=== PATIENT | male | born 1945 | race Caucasian/White ===

== ENCOUNTER 2017-08-11 15:59 | Inpatient (IN) | payer MEDICARE, OTHER ==
[~2017-08-11] VITALS: Ht 182.9 cm; Wt 91.3 kg
[~2017-08-11 15:59] MED LIST: DEPA500T3 PO; HALO100P IM; HALO1TAB25 PO; SYNT50TA PO; TAMS0.4C67 PO
[2017-08-11 16:06] VITALS: BP 115/77; PULSE 88; RESP 18; TEMP 97.4; O2SAT 97
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
[2017-08-11 17:01] LABS: AUTOMATED NEUTROPHIL # 7.3 TH/MM3 (1.8-7.7); BASOPHIL % 0.4 % (0.0-2.0); EOSINOPHIL # 0.2 TH/MM3 (0-0.4); EOSINOPHIL % 1.6 % (0.0-4.0); HEMOGLOBIN 10.7 GM/DL (13.0-17.0); LYMPH % 15.2 % (9.0-44.0); LYMPHOCYTE # 1.5 TH/MM3 (1.0-4.8); MEAN CORPUSCULAR HEMOGLOBIN 23.5 PG (27.0-34.0); MEAN CORPUSCULAR HGB CONC 31.4 % (32.0-36.0); MEAN PLATELET VOLUME 9.5 FL (7.0-11.0); MONO % 8.2 % (0.0-8.0); MONOCYTE # 0.8 TH/MM3 (0-0.9); NEUT % 74.6 % (16.0-70.0); PLATELET COUNT 378 TH/MM3 (150-450); RED BLOOD COUNT 4.53 MIL/MM3 (4.50-5.90); RED CELL DISTRIBUTION WIDTH 22.7 % (11.6-17.2); WHITE BLOOD COUNT 9.8 TH/MM3 (4.0-11.0)
[2017-08-11 17:20] LABS: ALBUMIN 3.4 GM/DL (3.4-5.0); AST (GOT) 23 U/L (15-37); BICARBONATE 25.1 MEQ/L (21.0-32.0); BLOOD UREA NITROGEN 10 MG/DL (7-18); CALCIUM 8.6 MG/DL (8.5-10.1); CHLORIDE 107 MEQ/L (98-107); GLOMERULAR FILTRATION RATE 83 ML/MIN (>89); GLUCOSE,RANDOM 103 MG/DL (74-106); SODIUM (NA) 143 MEQ/L (136-145)
[2017-08-11 17:21] LABS: ALT (GPT) 30 U/L (12-78)
[2017-08-11 17:31] LABS: ALKALINE PHOSPHATASE 85 U/L (45-117); TOTAL BILIRUBIN ADULT 0.3 MG/DL (0.2-1.0); TOTAL PROTEIN 7.3 GM/DL (6.4-8.2)
[2017-08-11 19:57] VITALS: BP 123/85; PULSE 87; RESP 20; O2SAT 97
[2017-08-11] MEDS ORDERED: LORazepam 2 MG/ML VIAL IM ONE (20:00)
[2017-08-11] MEDS ORDERED: HALOPERIDOL LACTATE 5 MG/ML AMP IM ONE (20:00)
[2017-08-12 01:56] VITALS: BP 101/55; PULSE 72; RESP 18; O2SAT 98
[2017-08-12 02:08] LABS: BILIRUBIN, URINE NEG (NEG); BLOOD, URINE NEG (NEG); CALCIUM OXALATE CRYSTALS,URINE OCC /hpf; GLUCOSE,URINE NEG (NEG); HYALINE CAST, URINE 2 /lpf (RARE); KETONE, URINE 10 mg/dL (NEG); MUCUS URINE MANY /lpf (OCC); NITRITE,URINE NEG (NEG); SQUAMOUS EPITHELIAL CELL URINE <1 /hpf (0-5); URINE COLOR YELLOW (YELLW/STRAW); URINE LEUKOCYTE ESTERASE TRACE (NEG)
[2017-08-12] MEDS ORDERED: TAMS5CAP PO (04:28)
[2017-08-12] MEDS ORDERED: PROS5TAB PO (04:28)
[2017-08-12] MEDS ORDERED: ZINC220T PO (04:28)
[2017-08-12] MEDS ORDERED: OMEP20TA93 PO (04:28)
[2017-08-12] MEDS ORDERED: DEPA500T3 PO (04:28)
[2017-08-12] MEDS ORDERED: FOLI400T PO (04:28)
[2017-08-12] MEDS ORDERED: METO1TAB42 PO (04:28)
[2017-08-12] MEDS ORDERED: TYLE325T PO (04:28)
[2017-08-12] MEDS ORDERED: CERTTAB2 (04:28)
[2017-08-12] MEDS ORDERED: LEVO50TA4 PO (04:28)
[2017-08-12] MEDS ORDERED: VITA250T3 PO (04:28)
[2017-08-12] MEDS ORDERED: VITA100022 PO (04:28)
[2017-08-12] MEDS ORDERED: KEPP10002 PO (04:28)
[2017-08-12] MEDS ORDERED: SERO25TA PO (04:28)
[2017-08-12] MEDS ORDERED: NAME5TAB2 PO (04:28)
[2017-08-12] MEDS ORDERED: LORazepam 2 MG/ML VIAL IM ONE ×2 (05:00→21:45)
[2017-08-12 11:18] VITALS: BP 120/70; PULSE 65; RESP 18; O2SAT 97
[2017-08-12] MEDS ORDERED: ALUMINUM/MAGNESIUM/SIMETH 30 ML CUP PO PRN (15:45)
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
[2017-08-12 16:44] VITALS: BP 121/85; PULSE 78; RESP 18; TEMP 97.9; O2SAT 97
--- NOTE | 2017-08-12 19:42 | RADRPT ---
EXAM DATE/TIME: 08/12/2017 19:21 [facility] COMPARISON: No previous studies available for comparison. INDICATIONS : Evaluate chest for trauma, fell MEDICAL HISTORY : Cardiovascular disease. SURGICAL HISTORY : Pacemaker. ENCOUNTER: Initial ACUITY: 1 day PAIN SCORE: 0/10 LOCATION: Bilateral chest FINDINGS: No infiltrate, effusion or pneumothorax demonstrated. There is right-sided volume loss but this is ch ronic and unchanged. A right-sided cardiac pacer with 2 leads is again noted. Heart size stable, within normal limits. Visualized osseous structures are grossly intact. CONCLUSION: No acute abnormality demonstrated. Chet Toledo MD on August 12, 2017 at 19:39 Board Certified Radiologist. This report was verified electronically.
[2017-08-12] MEDS ORDERED: LORazepam 2 MG/ML VIAL ONE (21:38)
[2017-08-12] MEDS ORDERED: HALOPERIDOL LACTATE 5 MG/ML AMP ONE (21:38)
[2017-08-12] MEDS ORDERED: HALOPERIDOL LACTATE 5 MG/ML AMP IM ONE (21:45)
[2017-08-13] MEDS ORDERED: HALOPERIDOL LACTATE 5 MG/ML AMP IM ONE (05:15)
[2017-08-13] MEDS ORDERED: LORazepam 2 MG/ML VIAL IM ONE (05:15)
[2017-08-13 06:00] VITALS: BP 131/74; PULSE 104; RESP 19; TEMP 98.2; O2SAT 97
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
[2017-08-13] MEDS ORDERED: diphenhydrAMINE HCL 25 MG CAP PO PRN (08:30)
[2017-08-13] MEDS: ZINC SULFATE 220 MG CAP PO SCH (09:00)
[2017-08-13] MEDS: FINASTERIDE 5 MG TAB PO SCH (09:00)
[2017-08-13] MEDS: REMOVE OLD PATCH T-DERMAL SCH (09:00)
[2017-08-13] MEDS ORDERED: NICOTINE 21 MG/24 HR PATCH T-DERMAL SCH (09:00)
[2017-08-13] MEDS ORDERED: NICOTINE 21 MG/24 HR PATCH T-DERMAL PRN (09:00)
[2017-08-13] MEDS: DIVALPROEX SODIUM E.R. 500 MG TAB PO SCH ×3 (09:01→18:00)
[2017-08-13] MEDS: FOLIC ACID 1 MG TAB PO SCH (09:01)
[2017-08-13] MEDS: METOPROLOL SUCCINATE 25 MG EXTENDED RELEASE TAB PO SCH (09:01)
[2017-08-13] MEDS: ASCORBIC ACID 500 MG TAB PO SCH ×2 (09:01→21:25)
[2017-08-13] MEDS: TAMSULOSIN HCL 0.4 MG CAP PO SCH ×2 (09:01→21:25)
[2017-08-13] MEDS: CYANOCOBALAMIN 1,000 MCG TAB PO SCH (09:01)
[2017-08-13] MEDS: PANTOPRAZOLE SOD 20 MG DELAYED RELEASE TAB PO SCH (09:01)
[2017-08-13] MEDS: levETIRAcetam 500 MG TAB PO SCH ×2 (09:01→21:25)
[2017-08-13] MEDS: HALOPERIDOL 5 MG TAB PO SCH ×2 (09:01→21:24)
[2017-08-13 09:10] LABS: BICARBONATE 27.8 MEQ/L (21.0-32.0); BLOOD UREA NITROGEN 6 MG/DL (7-18); CALCIUM 8.6 MG/DL (8.5-10.1); CHLORIDE 107 MEQ/L (98-107); CREATININE 0.79 MG/DL (0.60-1.30); GLOMERULAR FILTRATION RATE 96 ML/MIN (>89); GLUCOSE,RANDOM 94 MG/DL (74-106); SODIUM (NA) 143 MEQ/L (136-145)
[2017-08-13 09:11] LABS: CHOLESTEROL 118 MG/DL (120-200); TRIGLYCERIDES 122 MG/DL (42-150)
[2017-08-13 09:14] LABS: CHOLESTEROL/ HDL RATIO 2.84 RATIO; HDL CHOLESTEROL 41.5 MG/DL (40.0-60.0); LDL CHOLESTEROL 52 MG/DL (0-99)
[2017-08-13] MEDS ORDERED: POTASSIUM CHLORIDE 20 MEQ CONTROLLED RELEASE TAB PO ONE (10:45)
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
[2017-08-13 16:17] LABS: HEMOGLOBIN A1C 5.2 % (4.3-6.0)
[2017-08-13] MEDS: ACETAMINOPHEN 325 MG TAB PO PRN (17:22)
[2017-08-13 17:58] VITALS: BP 128/70; PULSE 64; RESP 20; TEMP 97.3; O2SAT 99
[2017-08-13] MEDS: MELATONIN 5 MG TAB PO PRN (21:24)
[2017-08-14] MEDS: LEVOTHYROXINE SODIUM 50 MCG TAB PO SCH (05:28)
[2017-08-14 05:44] VITALS: BP 129/73; PULSE 79; RESP 16; TEMP 98; O2SAT 95
[2017-08-14] MEDS: CYANOCOBALAMIN 1,000 MCG TAB PO SCH (08:51)
[2017-08-14] MEDS: TAMSULOSIN HCL 0.4 MG CAP PO SCH ×2 (08:52→21:00)
[2017-08-14] MEDS: ASCORBIC ACID 500 MG TAB PO SCH ×2 (08:53→22:50)
[2017-08-14] MEDS: ZINC SULFATE 220 MG CAP PO SCH (08:53)
[2017-08-14] MEDS: FOLIC ACID 1 MG TAB PO SCH (08:53)
[2017-08-14] MEDS: HALOPERIDOL 5 MG TAB PO SCH (08:54)
[2017-08-14] MEDS: METOPROLOL SUCCINATE 25 MG EXTENDED RELEASE TAB PO SCH (08:54)
[2017-08-14] MEDS: PANTOPRAZOLE SOD 20 MG DELAYED RELEASE TAB PO SCH (08:55)
[2017-08-14] MEDS: DIVALPROEX SODIUM E.R. 500 MG TAB PO SCH (08:57)
[2017-08-14] MEDS: FINASTERIDE 5 MG TAB PO SCH (08:58)
[2017-08-14] MEDS: REMOVE OLD PATCH T-DERMAL SCH (08:59)
[2017-08-14] MEDS: levETIRAcetam 500 MG TAB PO SCH ×2 (09:00→22:50)
--- NOTE | 2017-08-14 09:09 | HHI.PYPN ---
Subjective Chief Complaint: Aggressive behavior in setting of dementia Remarks Patient seen and examined. Chart reviewed. Case discussed with nursing staff. Patient has had episodes of intermittent agitation but has not required any Haldol IM. Case discussed with counselor. On my examination today, the patient remained somewhat disorganized. He tells me that he needs "a doctor to tape my ass together." Dentition is poor, and I will switch patient to a soft diet. I note he is holding pills in mouth, and I will switch psychotropics to liquids. No side effects from medications. No physical complaints. Review of Systems ROS Limitations: Psychotic, Poor Historian Except as stated in HPI: all other systems reviewed are Neg Mental Status Examination Appearance: Other (Fair) Consciousness: Alert Orientation: Person Motor Activity: Normal gait, Other (No abnormal motor movements noted. No EPS. ) Speech: Unremarkable Language: Other (Rambling) Fund of Knowledge: Poor Attention and Concentration: Inadequate Memory: Impaired Mood: Other (Remains calm at time of the evaluation) Affect: Labile Thought Process & Associations: Disorganized Thought Content: Bizarre thinking Hallucination Type: None Delusion Type: None Suicidal Ideation: No Suicidal Plan: No Suicidal Intention: No Homicidal Ideation: No Homicidal Plan: No Homicidal Intention: No Insight: Poor Judgment: Poor Results Labs Labs reviewed. Vitals/IOs Vital Signs Date Time Temp Pulse Resp B/P (MAP) Pulse Ox O2 Delivery O2 Flow Rate FiO2 08/14/17 05:44 98.0 79 16 129/73 (91) 95 08/12/17 11:18 Room Air Intake and Output 08/14/17 08/14/17 08/15/17 08:00 16:00 00:00 Intake Total 480 ml Balance 480 ml Assessment & Plan Problem List: (1) Dementia with behavioral disturbance ICD Codes: F03.91 - Unspecified dementia with behavioral disturbance (2) History of schizophrenia ICD Codes: Z86.59 - Personal history of other mental and behavioral disorders Assessment & Plan Change Haldol and Depakote to liquid formulations. To consider further titration of Haldol tomorrow to target thought disorganization and agitation. Check a BMP in the morning to follow up hypokalemia. Continue to monitor on the inpatient unit. Continue other medications and care as ordered. Justification for Cont. Inpt. Impairment in reality construction. Risk for decompensation in less restrictive environment. Discharge Planning Pending psychiatric stabilization. Request HC Surrog/Guard Advoc?: Yes Christiano Harper MD Aug 14, 2017 09:09
--- NOTE | 2017-08-14 09:29 | EKG ---
Date Performed: 08/13/2017 Time Performed: 14:09:11 PTAGE: 71 years EKG: Sinus rhythm NORMAL ECG PREVIOUS TRACING : 04/13/2013 13.45 DOCTOR: Gopi Guzman Interpretating Date/Time 08/14/2017 09:28:20
[2017-08-14] MEDS: VALPROIC ACID SYRUP 250 MG/5 ML UDC PO SCH ×2 (12:39→17:45)
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
[2017-08-14 18:16] VITALS: BP 123/68; PULSE 73; RESP 18; TEMP 98.1; O2SAT 97
[2017-08-14] MEDS: HALOPERIDOL LACTATE ORAL CONC 10 MG/5 ML CUP PO SCH (22:50)
[2017-08-15] MEDS: ACETAMINOPHEN 325 MG TAB PO PRN ×3 (01:25→20:15)
[2017-08-15] MEDS: MELATONIN 5 MG TAB PO PRN (01:25)
[2017-08-15 05:16] VITALS: BP 116/61; PULSE 80; RESP 16; TEMP 98; O2SAT 96
[2017-08-15] MEDS: LEVOTHYROXINE SODIUM 50 MCG TAB PO SCH (06:09)
[2017-08-15 07:28] LABS: BICARBONATE 26.8 MEQ/L (21.0-32.0); CALCIUM 8.2 MG/DL (8.5-10.1); CREATININE 0.65 MG/DL (0.60-1.30)
[2017-08-15] MEDS: REMOVE OLD PATCH T-DERMAL SCH (09:00)
[2017-08-15] MEDS: FOLIC ACID 1 MG TAB PO SCH (09:17)
[2017-08-15] MEDS: TAMSULOSIN HCL 0.4 MG CAP PO SCH ×3 (09:17→20:22)
[2017-08-15] MEDS: CYANOCOBALAMIN 1,000 MCG TAB PO SCH (09:18)
[2017-08-15] MEDS: PANTOPRAZOLE SOD 20 MG DELAYED RELEASE TAB PO SCH (09:18)
[2017-08-15] MEDS: levETIRAcetam 500 MG TAB PO SCH ×3 (09:19→20:26)
[2017-08-15] MEDS: ASCORBIC ACID 500 MG TAB PO SCH ×2 (09:20→20:26)
[2017-08-15] MEDS: METOPROLOL SUCCINATE 25 MG EXTENDED RELEASE TAB PO SCH (09:21)
[2017-08-15] MEDS: HALOPERIDOL LACTATE ORAL CONC 10 MG/5 ML CUP PO SCH ×3 (09:27→20:22)
[2017-08-15] MEDS: VALPROIC ACID SYRUP 250 MG/5 ML UDC PO SCH ×3 (09:28→18:00)
[2017-08-15] MEDS: FINASTERIDE 5 MG TAB PO SCH (09:45)
[2017-08-15] MEDS: ZINC SULFATE 220 MG CAP PO SCH (09:48)
[2017-08-15] MEDS: MAGNESIUM HYDROXIDE SUSP 30 ML CUP PO PRN (09:49)
--- NOTE | 2017-08-15 10:16 | PD.WCN.NOT ---
Wound Consult Description: Wound consult ordered by for wound management of buttocks. Communicated with: [facility], Recommendation: 1. Encourage patient to reposition every 2 hours for comfort and offloading. 2. Cleanse inner buttock with normal saline pat dry 3. Apply 2mm thick layer of Calazime cream to inner buttock fissure BID or after stooling. 4. Apply Remedy anti fungal powder to pannus fold and groin BID or as needed for moisture control. Additional Information: Patient was seen today in [facility] psych by fiction writer and [facility] for wound management of buttocks . Patient was in common area upon fiction writer arrival patient was able to ambulate to room with the assistance of his walker.Patient was able to independently position self on left side in bed.Precision Dyer was able to visualized entire sacral/coccyx/buttocks.Patient noted to have a fissure on inner buttocks just distal of sacral area that measures 2cm x 1.0cm x 0.1cm wound base is 100%pink moist non granular tissue.Periwound intact blanchable.No drainage noted.Patient has mild yeast odor in groin /pannus area .Precision Dyer provided staff with Remedy antifungal powder and Calazime cream.Solo will apply Calazime to inner buttock and powder to skin folds after shower.Patient / nurse had no questions or concern upon writers departure. Bassam Rodriguez [facility] Aug 15, 2017 10:16
--- NOTE | 2017-08-15 11:20 | HHI.PYPN ---
Subjective Chief Complaint: Aggressive behavior in setting of dementia Remarks Patient seen and examined with nurse. Chart reviewed. Case discussed with nursing staff who reports patient has been somewhat sexually inappropriate. On my examination today, the patient does indeed exhibit some sexually inappropriate speech, for example telling me "I finished on myself again." Thought process is fairly disorganized. He tells me he believes he is . He does endorse some SI but no plan or intent. No HI. No side effects from medications. No physical complaints. Review of Systems ROS Limitations: Psychotic, Poor Historian Except as stated in HPI: all other systems reviewed are Neg Mental Status Examination Appearance: Other (Fair) Consciousness: Alert Orientation: Person Motor Activity: Other (No abnormal motor movements noted. No hand tremor, no cogwheeling.) Speech: Unremarkable Language: Other (Rambling) Fund of Knowledge: Poor Attention and Concentration: Inadequate Memory: Impaired Mood: Irritable Affect: Labile Thought Process & Associations: Disorganized Thought Content: Bizarre thinking Hallucination Type: None Delusion Type: None Suicidal Ideation: No Suicidal Plan: No Suicidal Intention: No Homicidal Ideation: No Homicidal Plan: No Homicidal Intention: No Insight: Poor Judgment: Poor Results Labs Test 08/15/17 06:32 Blood Urea Nitrogen 5 MG/DL Creatinine 0.65 MG/DL Random Glucose 81 MG/DL Calcium Level 8.2 MG/DL Sodium Level 145 MEQ/L Potassium Level 3.6 MEQ/L Chloride Level 110 MEQ/L Carbon Dioxide Level 26.8 MEQ/L Anion Gap 8 MEQ/L Estimat Glomerular Filtration Rate 121 ML/MIN Labs reviewed. Vitals/IOs Vital Signs Date Time Temp Pulse Resp B/P (MAP) Pulse Ox O2 Delivery O2 Flow Rate FiO2 08/15/17 05:16 98.0 80 16 116/61 (79) 96 08/12/17 11:18 Room Air Intake and Output 08/15/17 08/15/17 08/16/17 08:00 16:00 00:00 Intake Total 120 ml Balance 120 ml Assessment & Plan Problem List: (1) Dementia with behavioral disturbance ICD Codes: F03.91 - Unspecified dementia with behavioral disturbance (2) History of schizophrenia ICD Codes: Z86.59 - Personal history of other mental and behavioral disorders Assessment & Plan Titrate Haldol to 5 mg 3 times daily to target what I suspect are psychotic symptoms given his history of schizophrenia. Continue other psychotropics as ordered. Plan to check a Depakote level over the weekend. Wound care and hospitalist input appreciated. Continue other meds and care as ordered. Justification for Cont. Inpt. Medication changes. Impairment in reality construction. Impairment in social function. Risk for decompensation in less restrictive environment. Discharge Planning Pending psychiatric stabilization. Request HC Surrog/Guard Advoc?: Yes Christiano Harper MD Aug 15, 2017 11:20
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
[2017-08-15 18:25] VITALS: BP 139/91; PULSE 92; RESP 16; TEMP 97.8; O2SAT 96
[2017-08-15] MEDS: DOCUSATE SODIUM 50 MG/SENNA 8.6 MG TAB PO SCH (20:26)
[2017-08-15] MEDS: HYDROCORTISONE ACETATE 25 MG SUPP RECTAL SCH (20:26)
[2017-08-16] MEDS: MELATONIN 5 MG TAB PO PRN ×2 (01:03→20:19)
[2017-08-16] MEDS: MAGNESIUM HYDROXIDE SUSP 30 ML CUP PO PRN (01:03)
[2017-08-16] MEDS: HALOPERIDOL LACTATE 5 MG/ML AMP IM PRN ×2 (01:44→13:13)
[2017-08-16] MEDS: LEVOTHYROXINE SODIUM 50 MCG TAB PO SCH (06:01)
[2017-08-16 06:11] VITALS: BP 113/57; PULSE 70; RESP 18; TEMP 97.8; O2SAT 97
[2017-08-16] MEDS: TAMSULOSIN HCL 0.4 MG CAP PO SCH ×2 (08:35→20:19)
[2017-08-16] MEDS: DOCUSATE SODIUM 50 MG/SENNA 8.6 MG TAB PO SCH ×2 (08:35→20:19)
[2017-08-16] MEDS: PANTOPRAZOLE SOD 20 MG DELAYED RELEASE TAB PO SCH (08:35)
[2017-08-16] MEDS: CYANOCOBALAMIN 1,000 MCG TAB PO SCH (08:35)
[2017-08-16] MEDS: FOLIC ACID 1 MG TAB PO SCH (08:35)
[2017-08-16] MEDS: VALPROIC ACID SYRUP 250 MG/5 ML UDC PO SCH ×3 (08:35→17:36)
[2017-08-16] MEDS: HALOPERIDOL LACTATE ORAL CONC 10 MG/5 ML CUP PO SCH ×3 (08:35→20:18)
[2017-08-16] MEDS: levETIRAcetam 500 MG TAB PO SCH ×2 (08:35→20:19)
[2017-08-16] MEDS: ASCORBIC ACID 500 MG TAB PO SCH ×2 (08:36→20:20)
[2017-08-16] MEDS: REMOVE OLD PATCH T-DERMAL SCH (08:36)
[2017-08-16] MEDS: ZINC SULFATE 220 MG CAP PO SCH (08:36)
[2017-08-16] MEDS: METOPROLOL SUCCINATE 25 MG EXTENDED RELEASE TAB PO SCH (08:36)
[2017-08-16] MEDS: HYDROCORTISONE ACETATE 25 MG SUPP RECTAL SCH ×2 (08:38→20:20)
[2017-08-16] MEDS: FINASTERIDE 5 MG TAB PO SCH (08:38)
--- NOTE | 2017-08-16 11:05 | HHI.PYPN ---
Subjective Chief Complaint: Aggressive behavior in setting of dementia Remarks Patient seen and examined. Chart reviewed. Case discussed in treatment team. On my examination today, patient remains fairly disorganized and delusional. He tells me "I need a cowboy hat and a pair of boots. I'm a rich [place] to an oil billionaire." He observes a ring on my hand and notes "I bought that gold ring for you." He remains sexually preoccupied and rambles about "satisfying a woman now." He tells me to "get the Metal Coater Operator to arrest me and get a dump truck!" Denies side effects from medications. No physical complaints. Review of Systems ROS Limitations: Psychotic, Poor Historian Except as stated in HPI: all other systems reviewed are Neg Mental Status Examination Appearance: Other (Fair) Consciousness: Alert Orientation: Person Motor Activity: Other (No motoric abnormalities noted) Speech: Unremarkable Language: Other (Rambling) Fund of Knowledge: Poor Attention and Concentration: Inadequate Memory: Impaired Mood: Other (Presently calm) Affect: Labile Thought Process & Associations: Disorganized Thought Content: Bizarre thinking Hallucination Type: None Delusion Type: Bizarre Suicidal Ideation: No Homicidal Ideation: No Insight: Poor Judgment: Poor Results Labs Labs reviewed. Vitals/IOs Vital Signs Date Time Temp Pulse Resp B/P (MAP) Pulse Ox O2 Delivery O2 Flow Rate FiO2 08/16/17 06:11 97.8 70 18 113/57 (75) 97 08/12/17 11:18 Room Air Intake and Output 08/16/17 08/16/17 08/16/17 07:59 15:59 23:59 Intake Total 240 ml Balance 240 ml Assessment & Plan Problem List: (1) Dementia with behavioral disturbance ICD Codes: F03.91 - Unspecified dementia with behavioral disturbance (2) History of schizophrenia ICD Codes: Z86.59 - Personal history of other mental and behavioral disorders Assessment & Plan Inadequate response to current therapy but Haldol was recently increased. I will continue with current dose of Haldol for now to avoid side effects from overly rapid titration in this geriatric patient. To consider titrating this still further over the weekend. Continue Depakote with plans to obtain a Depakote level over the weekend. Continue to monitor on the inpatient unit. Hospitalist input noted and appreciated. Continue other medications and care as ordered. Justification for Cont. Inpt. Impairment in reality construction. High risk for decompensation in less restrictive environment. Discharge Planning Return to facility following psychiatric stabilization Request HC Surrog/Guard Advoc?: Yes Christiano Harper MD Aug 16, 2017 11:05
[2017-08-16 18:00] VITALS: BP 127/59; PULSE 65; RESP 18; TEMP 97.5; O2SAT 98
[2017-08-17] MEDS: LEVOTHYROXINE SODIUM 50 MCG TAB PO SCH (05:24)
[2017-08-17 06:08] VITALS: BP 126/65; PULSE 78; RESP 16; TEMP 98; O2SAT 94
--- NOTE | 2017-08-17 08:06 | PD.TTN ---
Patient Problems 1. Discharge planning 2. Medication compliance 3. Knowledge deficit 4. Lack of coping skills Progress Toward Goals Provider Present: Dr. Stevie Harper Provider Input: 08/16/17 Needs med adjustment will be started/adjusting the Haldol and Depakote Psychiatric Counselors Present: Susan Milton LCSW Psych Therapist Input: 08/16/17 if patient is back to baseline his DENISE will come out and is considering to have him back , he remains talkative and socializes on unit often, remains delusional and confused and needs constant redirection Group Spec/RT/OT/URBINA Present: Charli Mesa OT Group Spec/RT/OT/URBINA Input: 08/16/17 patient is inappropriate in group and needs supervision and redirection but attends all groups offered Susan Milton LCSW Aug 17, 2017 08:06
[2017-08-17] MEDS: DOCUSATE SODIUM 50 MG/SENNA 8.6 MG TAB PO SCH ×3 (08:52→21:00)
[2017-08-17] MEDS: METOPROLOL SUCCINATE 25 MG EXTENDED RELEASE TAB PO SCH (08:53)
[2017-08-17] MEDS: PANTOPRAZOLE SOD 20 MG DELAYED RELEASE TAB PO SCH (08:53)
[2017-08-17] MEDS: FOLIC ACID 1 MG TAB PO SCH (08:53)
[2017-08-17] MEDS: ASCORBIC ACID 500 MG TAB PO SCH ×3 (08:53→21:00)
[2017-08-17] MEDS: FINASTERIDE 5 MG TAB PO SCH (08:53)
[2017-08-17] MEDS: CYANOCOBALAMIN 1,000 MCG TAB PO SCH (08:53)
[2017-08-17] MEDS: levETIRAcetam 500 MG TAB PO SCH ×3 (08:53→21:00)
[2017-08-17] MEDS: TAMSULOSIN HCL 0.4 MG CAP PO SCH ×2 (08:53→20:49)
[2017-08-17] MEDS: ZINC SULFATE 220 MG CAP PO SCH (08:53)
[2017-08-17] MEDS: HALOPERIDOL LACTATE ORAL CONC 10 MG/5 ML CUP PO SCH ×3 (08:54→20:49)
[2017-08-17] MEDS: HYDROCORTISONE ACETATE 25 MG SUPP RECTAL SCH ×3 (08:54→21:00)
[2017-08-17] MEDS: VALPROIC ACID SYRUP 250 MG/5 ML UDC PO SCH ×3 (08:54→16:01)
[2017-08-17] MEDS: HALOPERIDOL LACTATE 5 MG/ML AMP IM PRN ×2 (08:55→14:00)
[2017-08-17] MEDS: REMOVE OLD PATCH T-DERMAL SCH (09:00)
--- NOTE | 2017-08-17 09:23 | HHI.PYPN ---
Subjective Chief Complaint: Aggressive behavior in setting of dementia Remarks Reviewed chart. Discussed patient with nursing staff. Per staff patient had trouble staying asleep. Currently sitting in a chair in the common area. Continues to be ramble on with loose associations. Cooperative and easily redirected. Depakote level is pending for collection today. Mental Status Examination Appearance: Other (Fair) Consciousness: Alert Orientation: Person Motor Activity: Other (No motoric abnormalities noted) Speech: Unremarkable Language: Other (Rambling) Fund of Knowledge: Poor Attention and Concentration: Inadequate Memory: Impaired Mood: Other (Presently calm) Affect: Labile Thought Process & Associations: Disorganized Thought Content: Bizarre thinking Hallucination Type: None Delusion Type: Bizarre Suicidal Ideation: No Homicidal Ideation: No Insight: Poor Judgment: Poor Results Vitals/IOs Vital Signs Date Time Temp Pulse Resp B/P (MAP) Pulse Ox O2 Delivery O2 Flow Rate FiO2 08/17/17 06:08 98.0 78 16 126/65 (85) 94 Intake and Output 08/17/17 08/17/17 08/18/17 08:00 16:00 00:00 Intake Total 480 ml Balance 480 ml Assessment & Plan Problem List: (1) Dementia with behavioral disturbance ICD Codes: F03.91 - Unspecified dementia with behavioral disturbance Assessment & Plan: Will continue with current treatment plan. Discharge planning in progress. (2) History of schizophrenia ICD Codes: Z86.59 - Personal history of other mental and behavioral disorders Assessment & Plan Estimated LOS: days Justification for Cont. Inpt. Moving patient to a lower level of care may result in decompensation. Request HC Surrog/Guard Advoc?: Yes Elizabet Goldberg Aug 17, 2017 09:23
[2017-08-17] MEDS: diphenhydrAMINE HCL 50 MG/ML VIAL IM PRN (15:36)
[2017-08-17 17:00] VITALS: BP 117/69; PULSE 70; RESP 16; TEMP 98.7
[2017-08-17] MEDS ORDERED: LORazepam 2 MG/ML VIAL ONE (18:51)
[2017-08-17] MEDS ORDERED: LORazepam 2 MG/ML VIAL IM ONE (19:00)
[2017-08-17] MEDS ORDERED: HALOPERIDOL LACTATE 5 MG/ML AMP IM ONE (19:00)
[2017-08-18 06:18] VITALS: BP 116/60; PULSE 72; RESP 18; TEMP 99.1; O2SAT 99
[2017-08-18] MEDS: LEVOTHYROXINE SODIUM 50 MCG TAB PO SCH (06:30)
[2017-08-18] MEDS: HALOPERIDOL LACTATE ORAL CONC 10 MG/5 ML CUP PO SCH ×3 (09:00→21:37)
[2017-08-18] MEDS: HYDROCORTISONE ACETATE 25 MG SUPP RECTAL SCH (09:00)
[2017-08-18] MEDS: CYANOCOBALAMIN 1,000 MCG TAB PO SCH (09:00)
[2017-08-18] MEDS: REMOVE OLD PATCH T-DERMAL SCH (09:00)
[2017-08-18] MEDS: ZINC SULFATE 220 MG CAP PO SCH (09:34)
[2017-08-18] MEDS: FOLIC ACID 1 MG TAB PO SCH (09:34)
[2017-08-18] MEDS: DOCUSATE SODIUM 50 MG/SENNA 8.6 MG TAB PO SCH ×2 (09:34→21:39)
[2017-08-18] MEDS: PANTOPRAZOLE SOD 20 MG DELAYED RELEASE TAB PO SCH (09:34)
[2017-08-18] MEDS: levETIRAcetam 500 MG TAB PO SCH ×2 (09:34→21:39)
[2017-08-18] MEDS: METOPROLOL SUCCINATE 25 MG EXTENDED RELEASE TAB PO SCH (09:34)
[2017-08-18] MEDS: TAMSULOSIN HCL 0.4 MG CAP PO SCH ×2 (09:35→21:39)
[2017-08-18] MEDS: FINASTERIDE 5 MG TAB PO SCH (09:35)
[2017-08-18] MEDS: ASCORBIC ACID 500 MG TAB PO SCH ×2 (09:35→21:38)
[2017-08-18] MEDS: VALPROIC ACID SYRUP 250 MG/5 ML UDC PO SCH ×3 (09:36→18:00)
[2017-08-18] MEDS: diphenhydrAMINE HCL 50 MG/ML VIAL IM PRN (13:31)
[2017-08-18] MEDS: HALOPERIDOL LACTATE 5 MG/ML AMP IM PRN (13:31)
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
[2017-08-18 18:12] VITALS: BP 117/63; PULSE 77; RESP 18; TEMP 97.1; O2SAT 99
[2017-08-18 20:51] VITALS: BP 112/71; PULSE 68; RESP 16; TEMP 98.1; O2SAT 94
[2017-08-19] MEDS: HALOPERIDOL LACTATE 5 MG/ML AMP IM PRN (01:13)
[2017-08-19] MEDS: ACETAMINOPHEN 325 MG TAB PO PRN (02:27)
[2017-08-19 05:43] VITALS: BP 130/80; PULSE 80; RESP 17; TEMP 97.4; O2SAT 94
[2017-08-19] MEDS: LEVOTHYROXINE SODIUM 50 MCG TAB PO SCH (06:00)
[2017-08-19] MEDS: HALOPERIDOL LACTATE ORAL CONC 10 MG/5 ML CUP PO SCH ×3 (08:15→21:20)
[2017-08-19] MEDS: FINASTERIDE 5 MG TAB PO SCH (08:51)
[2017-08-19] MEDS: VALPROIC ACID SYRUP 250 MG/5 ML UDC PO SCH ×3 (08:51→17:24)
[2017-08-19] MEDS: CYANOCOBALAMIN 1,000 MCG TAB PO SCH (08:52)
[2017-08-19] MEDS: DOCUSATE SODIUM 50 MG/SENNA 8.6 MG TAB PO SCH ×2 (08:52→21:23)
[2017-08-19] MEDS: levETIRAcetam 500 MG TAB PO SCH ×2 (08:52→21:20)
[2017-08-19] MEDS: TAMSULOSIN HCL 0.4 MG CAP PO SCH ×2 (08:52→21:20)
[2017-08-19] MEDS: ASCORBIC ACID 500 MG TAB PO SCH ×2 (08:52→21:23)
[2017-08-19] MEDS: PANTOPRAZOLE SOD 20 MG DELAYED RELEASE TAB PO SCH (08:52)
[2017-08-19] MEDS: FOLIC ACID 1 MG TAB PO SCH (08:52)
[2017-08-19] MEDS: ZINC SULFATE 220 MG CAP PO SCH (08:52)
[2017-08-19] MEDS: METOPROLOL SUCCINATE 25 MG EXTENDED RELEASE TAB PO SCH (08:52)
[2017-08-19] MEDS: REMOVE OLD PATCH T-DERMAL SCH (09:00)
--- NOTE | 2017-08-19 14:04 | HHI.PYPN ---
Subjective Chief Complaint: Aggressive behavior in setting of dementia Remarks Patient seen and case discussed with nursing staff. Chart reviewed. Per nursing staff, patient has not been exhibiting any sexually inappropriate behaviors and has been compliant with medications. However, he continues to exhibit disruptive behaviors such as pulling down the white board in the day area and pulling off baseboard from the wall. He received Haldol IM overnight for agitation. For me today, patient's speech remains rambling. I find him wandering around the unit pulling off the name placards from patients' rooms. He remains confused. No evident side effects from medications. No physical complaints. Review of Systems ROS Limitations: Poor Historian Other Limited ROS today Mental Status Examination Appearance: Other (Fair) Consciousness: Alert Orientation: Person (At least) Motor Activity: Other (No motoric abnormalities noted) Speech: Unremarkable Language: Other (Rambling) Fund of Knowledge: Poor Attention and Concentration: Inadequate Memory: Impaired Mood: Other (Calm at present) Affect: Labile Thought Process & Associations: Disorganized (Remains fairly disorganized) Thought Content: Bizarre thinking Hallucination Type: None Delusion Type: Bizarre Suicidal Ideation: No Homicidal Ideation: No Insight: Poor Judgment: Poor Results Labs Labs reviewed. Depakote level subtherapeutic and ammonia level slightly elevated. Vitals/IOs Vital Signs Date Time Temp Pulse Resp B/P (MAP) Pulse Ox O2 Delivery O2 Flow Rate FiO2 08/19/17 05:43 97.4 80 17 130/80 (97) 94 Intake and Output 08/19/17 08/19/17 08/20/17 08:00 16:00 00:00 Intake Total 600 ml Balance 600 ml Assessment & Plan Problem List: (1) Dementia with behavioral disturbance ICD Codes: F03.91 - Unspecified dementia with behavioral disturbance (2) History of schizophrenia ICD Codes: Z86.59 - Personal history of other mental and behavioral disorders Assessment & Plan Titrate Depakene liquid to 625mg TID to try to control behaviors. Plan to recheck Depakote level end of the week; will recheck ammonia level at that time as well. Add lactulose for hyperammonemia. Continue to monitor on the inpatient unit. Continue other medications and care as ordered. Justification for Cont. Inpt. Med changes. High risk for decompensation in less restrictive environment. Discharge Planning Placement once psychiatrically stabilized Request HC Surrog/Guard Advoc?: Yes Chaiffetz,Christiano B. MD Aug 19, 2017 14:04
[2017-08-19] MEDS ORDERED: VALPROIC ACID SYRUP 250 MG/5 ML UDC PO SCH (18:00)
[2017-08-19 18:37] VITALS: BP 118/67; PULSE 67; RESP 16; TEMP 97.6; O2SAT 94
[2017-08-19] MEDS: LACTULOSE SYRUP 20 GM/30 ML CUP PO SCH (21:20)
[2017-08-20 06:17] VITALS: BP 123/57; PULSE 75; RESP 18; TEMP 98.3; O2SAT 96
[2017-08-20] MEDS: LEVOTHYROXINE SODIUM 50 MCG TAB PO SCH (06:27)
[2017-08-20] MEDS: REMOVE OLD PATCH T-DERMAL SCH (09:00)
[2017-08-20] MEDS: LACTULOSE SYRUP 20 GM/30 ML CUP PO SCH ×2 (09:46→20:38)
[2017-08-20] MEDS: FOLIC ACID 1 MG TAB PO SCH (09:48)
[2017-08-20] MEDS: PANTOPRAZOLE SOD 20 MG DELAYED RELEASE TAB PO SCH (09:48)
[2017-08-20] MEDS: ASCORBIC ACID 500 MG TAB PO SCH ×2 (09:49→20:38)
[2017-08-20] MEDS: levETIRAcetam 500 MG TAB PO SCH ×2 (09:49→20:38)
--- NOTE | 2017-08-20 09:49 | HHI.PYPN ---
Subjective Chief Complaint: Aggressive behavior in setting of dementia Remarks Patient seen and examined with nurse. Chart reviewed. Case discussed with nursing staff. Patient noted to urinate on floor and drink from toilet overnight. Case discussed in treatment team. On my exam today, I find the patient pulling out drawers in the day area. When I ask what he is doing, he replies that he is counting his money. When I ask about his behavior overnight , he tells me that he urinated on the floor "because I was gonna fish" and he drank from the toilet because "it's the same water she brought me, salt water." He is oriented to person only and gives the date as April, and the location as the "ocean [place]. I built the [place]." Some mild cogwheeling but no other side effects from medications. No physical complaints. Review of Systems ROS Limitations: Psychotic, Poor Historian Except as stated in HPI: all other systems reviewed are Neg Mental Status Examination Appearance: Other (Fair) Consciousness: Alert Orientation: Person Motor Activity: Other (mild cogwheeling. No resting tremor, no dystonias, no dyskinesias. No other motor abnormalities noted.) Speech: Unremarkable Language: Other (Rambling) Fund of Knowledge: Poor Attention and Concentration: Inadequate Memory: Impaired Mood: Other (Calm) Affect: Blunt Thought Process & Associations: Disorganized Thought Content: Bizarre thinking Hallucination Type: None Delusion Type: Bizarre Suicidal Ideation: No (No SI voiced) Homicidal Ideation: No (No HI voiced) Insight: Poor Judgment: Poor Results Labs Labs reviewed. Vitals/IOs Vital Signs Date Time Temp Pulse Resp B/P (MAP) Pulse Ox O2 Delivery O2 Flow Rate FiO2 08/20/17 06:17 98.3 75 18 123/57 (79) 96 Assessment & Plan Problem List: (1) Dementia with behavioral disturbance ICD Codes: F03.91 - Unspecified dementia with behavioral disturbance (2) History of schizophrenia ICD Codes: Z86.59 - Personal history of other mental and behavioral disorders Assessment & Plan Patient remains quite behaviorally disorganized. I will titrate Haldol to 10mg BID. If we do not see consistent positive response to antipsychotic soon, may need to consider a different agent. Continue Depakote as ordered. Continue to monitor on the inpatient unit. Continue other medications and care as ordered. Justification for Cont. Inpt. Med changes. Risk for decompensation in less restrictive environment. Discharge Planning Return to facility once psychiatrically stabilized. Request HC Surrog/Guard Advoc?: Yes Christiano Harper MD August 20, 2017 09:49
[2017-08-20] MEDS: METOPROLOL SUCCINATE 25 MG EXTENDED RELEASE TAB PO SCH (09:50)
[2017-08-20] MEDS: ZINC SULFATE 220 MG CAP PO SCH (09:51)
[2017-08-20] MEDS: DOCUSATE SODIUM 50 MG/SENNA 8.6 MG TAB PO SCH ×2 (09:52→20:38)
[2017-08-20] MEDS: TAMSULOSIN HCL 0.4 MG CAP PO SCH ×2 (09:52→20:37)
[2017-08-20] MEDS: VALPROIC ACID SYRUP 250 MG/5 ML UDC PO SCH ×3 (10:02→18:19)
[2017-08-20] MEDS: FINASTERIDE 5 MG TAB PO SCH (10:18)
[2017-08-20] MEDS: CYANOCOBALAMIN 1,000 MCG TAB PO SCH (10:23)
[2017-08-20 10:34] VITALS: BP 110/66; PULSE 82; RESP 17; TEMP 98.2; O2SAT 95
[2017-08-20 17:49] VITALS: BP 116/59; PULSE 78; RESP 18; TEMP 97.3; O2SAT 93
[2017-08-20] MEDS: HALOPERIDOL LACTATE ORAL CONC 10 MG/5 ML CUP PO SCH (20:37)
[2017-08-21 05:27] VITALS: BP 112/56; PULSE 79; RESP 14; TEMP 98.8; O2SAT 94
[2017-08-21] MEDS: LEVOTHYROXINE SODIUM 50 MCG TAB PO SCH (06:06)
[2017-08-21] MEDS: HALOPERIDOL LACTATE ORAL CONC 10 MG/5 ML CUP PO SCH ×2 (08:50→20:14)
[2017-08-21] MEDS: FOLIC ACID 1 MG TAB PO SCH (08:51)
[2017-08-21] MEDS: LACTULOSE SYRUP 20 GM/30 ML CUP PO SCH ×2 (08:51→20:15)
[2017-08-21] MEDS: FINASTERIDE 5 MG TAB PO SCH (08:51)
[2017-08-21] MEDS: VALPROIC ACID SYRUP 250 MG/5 ML UDC PO SCH ×3 (08:51→17:34)
[2017-08-21] MEDS: PANTOPRAZOLE SOD 20 MG DELAYED RELEASE TAB PO SCH (08:51)
[2017-08-21] MEDS: ZINC SULFATE 220 MG CAP PO SCH (08:51)
[2017-08-21] MEDS: levETIRAcetam 500 MG TAB PO SCH ×2 (08:52→20:15)
[2017-08-21] MEDS: CYANOCOBALAMIN 1,000 MCG TAB PO SCH (08:52)
[2017-08-21] MEDS: METOPROLOL SUCCINATE 25 MG EXTENDED RELEASE TAB PO SCH (08:52)
[2017-08-21] MEDS: TAMSULOSIN HCL 0.4 MG CAP PO SCH ×2 (08:52→20:15)
[2017-08-21] MEDS: ASCORBIC ACID 500 MG TAB PO SCH ×2 (08:52→20:15)
[2017-08-21] MEDS: DOCUSATE SODIUM 50 MG/SENNA 8.6 MG TAB PO SCH ×2 (08:55→20:15)
[2017-08-21] MEDS: REMOVE OLD PATCH T-DERMAL SCH (08:56)
--- NOTE | 2017-08-21 13:30 | HHI.PYPN ---
Subjective Chief Complaint: Aggressive behavior in setting of dementia Remarks Patient seen and case discussed with nursing staff. Chart reviewed. Per nursing staff, ongoing issues with agitation, banging on windows/doors. For me today, patient remains agitated with ongoing utilization behaviors. No evidence of sedation or other significant side effects from medications. Reviewing his previous admissions, I note patient has required as much as 40mg/ day oral Haldol in the past. Review of Systems ROS Limitations: Poor Historian Other Limited ROS Mental Status Examination Appearance: Other (Fair) Consciousness: Alert Orientation: Person Motor Activity: Other (No motoric abnormalities noted) Speech: Unremarkable Language: Other (Rambling) Fund of Knowledge: Poor Attention and Concentration: Inadequate Memory: Impaired Mood: Irritable Affect: Blunt Thought Process & Associations: Disorganized Thought Content: Bizarre thinking Hallucination Type: None Delusion Type: None Suicidal Ideation: No (No SI voiced) Homicidal Ideation: No (No HI voiced) Insight: Poor Judgment: Poor Results Labs Labs reviewed. No new labs. Vitals/IOs Vital Signs Date Time Temp Pulse Resp B/P (MAP) Pulse Ox O2 Delivery O2 Flow Rate FiO2 08/21/17 05:27 98.8 79 14 112/56 (74) 94 Intake and Output 08/21/17 08/21/17 08/22/17 08:00 16:00 00:00 Intake Total 240 ml Balance 240 ml Assessment & Plan Problem List: (1) Dementia with behavioral disturbance ICD Codes: F03.91 - Unspecified dementia with behavioral disturbance (2) History of schizophrenia ICD Codes: Z86.59 - Personal history of other mental and behavioral disorders Assessment & Plan Titrate Haldol to 15mg BID and continue Depakote as ordered. Plan to check a VPA and ammonia level Saturday morning, and I will plan to get an updated set of basic labs at that time as well. Continue other medications and care as ordered. Justification for Cont. Inpt. Impairment in safety. Med changes. Impairment in reality construction. Risk for decompensation in less restrictive environment. Discharge Planning Pending psychiatric stabilization. Request HC Surrog/Guard Advoc?: Yes Christiano Harper MD August 21, 2017 13:30
--- NOTE | 2017-08-21 16:27 | PD.TTN ---
Patient Problems 1. Discharge planning 2. Medication compliance 3. Knowledge deficit 4. Lack of coping skills Progress Toward Goals Provider Present: Dr. Stevie Harper Provider Input: 08/20/17 pt is still in need of stabilization and is still disruptive and delusional 08/16/17 Needs med adjustment will be started/adjusting the Haldol and Depakote Psychiatric Counselors Present: Susan Milton LCSW Psych Therapist Input: 08/20/17 he may be able to to go NURSING HOME but needs to be directable, he is not at this time and is breaking things an intrusive and walking into rooms and inappropriate 08/16/17 if patient is back to baseline his NURSING HOME will come out and is considering to have him back , he remains talkative and socializes on unit often, remains delusional and confused and needs constant redirection Group Spec/RT/OT/URBINA Present: Charli Mesa OT Group Spec/RT/OT/URBINA Input: 08/20/17 interrupts groups and not appropriate in groups 08/16/17 patient is inappropriate in group and needs supervision and redirection but attends all groups offered Susan Milton LCSW August 21, 2017 16:27
[2017-08-21 18:00] VITALS: BP 117/62; PULSE 71; RESP 15; TEMP 97.7; O2SAT 95
[2017-08-22 05:20] VITALS: BP 101/54; PULSE 76; RESP 18; TEMP 97.7; O2SAT 95
[2017-08-22] MEDS: LEVOTHYROXINE SODIUM 50 MCG TAB PO SCH (06:16)
[2017-08-22 06:21] VITALS: BP 101/54; PULSE 76; RESP 18; TEMP 97.7; O2SAT 95
[2017-08-22] MEDS: VALPROIC ACID SYRUP 250 MG/5 ML UDC PO SCH ×3 (08:48→18:00)
[2017-08-22] MEDS: TAMSULOSIN HCL 0.4 MG CAP PO SCH ×2 (08:48→20:37)
[2017-08-22] MEDS: ASCORBIC ACID 500 MG TAB PO SCH ×2 (08:49→20:36)
[2017-08-22] MEDS: ZINC SULFATE 220 MG CAP PO SCH (08:49)
[2017-08-22] MEDS: levETIRAcetam 500 MG TAB PO SCH ×2 (08:49→20:36)
[2017-08-22] MEDS: PANTOPRAZOLE SOD 20 MG DELAYED RELEASE TAB PO SCH (08:50)
[2017-08-22] MEDS: METOPROLOL SUCCINATE 25 MG EXTENDED RELEASE TAB PO SCH (08:50)
[2017-08-22] MEDS: CYANOCOBALAMIN 1,000 MCG TAB PO SCH (08:51)
[2017-08-22] MEDS: FINASTERIDE 5 MG TAB PO SCH (08:51)
[2017-08-22] MEDS: HALOPERIDOL LACTATE ORAL CONC 10 MG/5 ML CUP PO SCH ×2 (08:52→20:37)
[2017-08-22] MEDS: LACTULOSE SYRUP 20 GM/30 ML CUP PO SCH ×2 (08:54→20:37)
[2017-08-22] MEDS: FOLIC ACID 1 MG TAB PO SCH (09:02)
[2017-08-22] MEDS: DOCUSATE SODIUM 50 MG/SENNA 8.6 MG TAB PO SCH ×2 (09:03→20:36)
[2017-08-22] MEDS: REMOVE OLD PATCH T-DERMAL SCH (09:04)
[2017-08-22] MEDS: HALOPERIDOL LACTATE 5 MG/ML AMP IM PRN (10:18)
--- NOTE | 2017-08-22 11:13 | HHI.PYPN ---
Subjective Chief Complaint: Aggressive behavior in setting of dementia Remarks Patient seen and case discussed with nursing staff. Chart reviewed. Per nursing staff, the patient remains sexually inappropriate, trying to hug other patients. Behavior remains disorganized. He is rambling about the devil and God per nursing staff. For me today, the patient remains disorganized. Affect is quite labile. No evident side effects from medications. No physical complaints. I was notified by the nursing staff later in the morning that the patient was verbalizing some suicidal ideation in the setting of his disorganized thoughts. I have ordered the nursing staff to monitor the patient within line of sight of staff and to place the patient with one-to-one if there should be any evidence of attempts at self injury. I endeavored to reach patient's guardian advocate to discuss patient's progress on the unit and treatment plan going forward. I left a generic voicemail requesting a call back. Review of Systems ROS Limitations: Psychotic, Poor Historian Other Limited ROS today Mental Status Examination Appearance: Disheveled Consciousness: Alert Orientation: Person Motor Activity: Other (No abnormal motor movements noted) Speech: Unremarkable Language: Other (Rambling) Fund of Knowledge: Poor Attention and Concentration: Inadequate Memory: Impaired (Suspect remains impaired) Mood: Irritable Affect: Blunt Thought Process & Associations: Disorganized Thought Content: Bizarre thinking Hallucination Type: None Delusion Type: None Suicidal Ideation: No Homicidal Ideation: No Insight: Poor Judgment: Poor Results Labs Labs reviewed. Vitals/IOs Vital Signs Date Time Temp Pulse Resp B/P (MAP) Pulse Ox O2 Delivery O2 Flow Rate FiO2 08/22/17 06:21 97.7 76 18 101/54 (70) 95 Intake and Output 08/22/17 08/22/17 08/23/17 08:00 16:00 00:00 Intake Total 120 ml 240 ml Balance 120 ml 240 ml Assessment & Plan Problem List: (1) Dementia with behavioral disturbance ICD Codes: F03.91 - Unspecified dementia with behavioral disturbance (2) History of schizophrenia ICD Codes: Z86.59 - Personal history of other mental and behavioral disorders Assessment & Plan As noted previously, patient has been on as much as 20 mg of Haldol twice a day , and in light of his ongoing symptoms I will continue the Haldol titration. I do think it is worth considering an alternative antipsychotic, and I will discuss this with the patient's guardian advocate when she calls me back. Continue Depakote as ordered. Follow-up laboratories ordered for tomorrow morning. Continue to monitor on the inpatient unit. Continue other medications and care as ordered. Patient's case was presented to the [place] [facility] and the patient was retained on the unit by the panel builder with sister to serve as guardian advocate. Justification for Cont. Inpt. Impairment in self-care. Impairment in reality construction. High risk for decompensation in less restrictive environment. Medication changes. Discharge Planning Placement following psychiatric stabilization. Case discussed with counselor. Request HC Surrog/Guard Advoc?: Yes Christiano Harper MD August 22, 2017 11:13
[2017-08-22] MEDS ORDERED: OLANZapine IM 10 MG VIAL IM STA (11:58)
[2017-08-22 18:00] VITALS: BP 111/62; PULSE 77; RESP 17; TEMP 96.7; O2SAT 98
[2017-08-23] MEDS: LEVOTHYROXINE SODIUM 50 MCG TAB PO SCH (05:40)
[2017-08-23 05:50] VITALS: BP 100/56; PULSE 71; RESP 18; TEMP 96.9; O2SAT 95
[2017-08-23] MEDS: LACTULOSE SYRUP 20 GM/30 ML CUP PO SCH ×2 (08:10→09:00)
[2017-08-23] MEDS: HALOPERIDOL LACTATE ORAL CONC 10 MG/5 ML CUP PO SCH ×3 (08:10→21:26)
[2017-08-23] MEDS: VALPROIC ACID SYRUP 250 MG/5 ML UDC PO SCH ×4 (08:11→18:00)
[2017-08-23] MEDS: PANTOPRAZOLE SOD 20 MG DELAYED RELEASE TAB PO SCH ×2 (08:11→09:00)
[2017-08-23] MEDS: FINASTERIDE 5 MG TAB PO SCH ×2 (08:11→09:00)
[2017-08-23] MEDS: METOPROLOL SUCCINATE 25 MG EXTENDED RELEASE TAB PO SCH ×2 (08:11→09:00)
[2017-08-23] MEDS: FOLIC ACID 1 MG TAB PO SCH ×2 (08:11→09:00)
[2017-08-23] MEDS: levETIRAcetam 500 MG TAB PO SCH ×3 (08:11→21:27)
[2017-08-23] MEDS: ASCORBIC ACID 500 MG TAB PO SCH ×3 (08:11→21:00)
[2017-08-23] MEDS: CYANOCOBALAMIN 1,000 MCG TAB PO SCH ×2 (08:12→09:00)
[2017-08-23] MEDS: ZINC SULFATE 220 MG CAP PO SCH ×2 (08:12→09:00)
[2017-08-23] MEDS: TAMSULOSIN HCL 0.4 MG CAP PO SCH ×3 (08:12→21:27)
[2017-08-23] MEDS: DOCUSATE SODIUM 50 MG/SENNA 8.6 MG TAB PO SCH ×3 (08:12→21:27)
[2017-08-23 08:35] LABS: AUTOMATED NEUTROPHIL # 2.7 TH/MM3 (1.8-7.7); BASOPHIL % 0.7 % (0.0-2.0); EOSINOPHIL # 0.2 TH/MM3 (0-0.4); EOSINOPHIL % 3.8 % (0.0-4.0); HEMATOCRIT 28.2 % (39.0-51.0); HEMOGLOBIN 8.9 GM/DL (13.0-17.0); LYMPH % 37.2 % (9.0-44.0); LYMPHOCYTE # 2.1 TH/MM3 (1.0-4.8); MEAN CELL VOLUME 73.8 FL (80.0-100.0); MEAN CORPUSCULAR HEMOGLOBIN 23.4 PG (27.0-34.0); MEAN CORPUSCULAR HGB CONC 31.7 % (32.0-36.0); MONO % 10.5 % (0.0-8.0); MONOCYTE # 0.6 TH/MM3 (0-0.9); NEUT % 47.8 % (16.0-70.0); PLATELET COUNT 277 TH/MM3 (150-450); RED BLOOD COUNT 3.82 MIL/MM3 (4.50-5.90); RED CELL DISTRIBUTION WIDTH 21.2 % (11.6-17.2); WHITE BLOOD COUNT 5.7 TH/MM3 (4.0-11.0)
[2017-08-23] MEDS: REMOVE OLD PATCH T-DERMAL SCH (09:00)
[2017-08-23 09:06] LABS: ALBUMIN 2.6 GM/DL (3.4-5.0); AST (GOT) 13 U/L (15-37); BICARBONATE 26.2 MEQ/L (21.0-32.0); BLOOD UREA NITROGEN 9 MG/DL (7-18); CALCIUM 8.2 MG/DL (8.5-10.1); CHLORIDE 109 MEQ/L (98-107); CREATININE 0.54 MG/DL (0.60-1.30); GLOMERULAR FILTRATION RATE 150 ML/MIN (>89); GLUCOSE,RANDOM 76 MG/DL (74-106); SODIUM (NA) 145 MEQ/L (136-145)
[2017-08-23 09:08] LABS: ALT (GPT) 15 U/L (12-78)
[2017-08-23 09:09] LABS: ALKALINE PHOSPHATASE 61 U/L (45-117); TOTAL BILIRUBIN ADULT 0.2 MG/DL (0.2-1.0); TOTAL PROTEIN 5.6 GM/DL (6.4-8.2)
[2017-08-23] MEDS: diphenhydrAMINE HCL 50 MG/ML VIAL IM PRN ×2 (13:32→23:12)
[2017-08-23] MEDS: HALOPERIDOL LACTATE 5 MG/ML AMP IM PRN ×2 (13:32→23:11)
[2017-08-23] MEDS ORDERED: OLANZapine IM 10 MG VIAL IM PRN (15:45)
--- NOTE | 2017-08-23 15:50 | HHI.PYPN ---
Subjective Chief Complaint: Aggressive behavior in setting of dementia Remarks Patient seen and examined with nurse. Chart reviewed. Case discussed with nursing staff who questions patient's compliance with oral medications. Patient did refuse medications this morning by mouth. Nurse notes that the patient engages in destructive behaviors in an attention seeking and seemingly purposeful manner. On my examination today, the patient remains quite irascible. Becomes overtly threatening toward this typewriter operator automatic when gently challenged. Rambles in a disorganized fashion about being the captain of a ship. No side effects from medications, except that the patient is having loose stools from the lactulose. No physical complaints. Spoke with patient's sister/HCS. We discuss patient's progress on the unit and treatment plan going forward. She agrees that patient has had minimal improvement with Haldol/Depakote. She thinks patient may have done well with Zyprexa in the past. She confirms that Depakote is for psychiatric indication and not for seizure (patient is also on Keppra). Review of Systems ROS Limitations: Psychotic, Poor Historian Except as stated in HPI: all other systems reviewed are Neg Mental Status Examination Appearance: Disheveled Consciousness: Alert Orientation: Person Motor Activity: Other (No motoric abnormalities noted) Speech: Unremarkable Language: Other (Rambling) Fund of Knowledge: Poor Attention and Concentration: Inadequate Memory: Impaired (Suspect remains impaired) Mood: Irritable Affect: Irritable, Labile Thought Process & Associations: Disorganized Thought Content: Bizarre thinking Hallucination Type: None Delusion Type: Paranoid Suicidal Ideation: No (None voiced) Homicidal Ideation: No (None voiced) Insight: Poor Judgment: Poor Results Labs Test 08/23/17 08:16 White Blood Count 5.7 TH/MM3 Red Blood Count 3.82 MIL/MM3 Hemoglobin 8.9 GM/DL Hematocrit 28.2 % Mean Corpuscular Volume 73.8 FL Mean Corpuscular Hemoglobin 23.4 PG Mean Corpuscular Hemoglobin Concent 31.7 % Red Cell Distribution Width 21.2 % Platelet Count 277 TH/MM3 Mean Platelet Volume 9.0 FL Neutrophils (%) (Auto) 47.8 % Lymphocytes (%) (Auto) 37.2 % Monocytes (%) (Auto) 10.5 % Eosinophils (%) (Auto) 3.8 % Basophils (%) (Auto) 0.7 % Neutrophils # (Auto) 2.7 TH/MM3 Lymphocytes # (Auto) 2.1 TH/MM3 Monocytes # (Auto) 0.6 TH/MM3 Eosinophils # (Auto) 0.2 TH/MM3 Basophils # (Auto) 0.0 TH/MM3 CBC Comment DIFF FINAL Differential Comment Blood Urea Nitrogen 9 MG/DL Creatinine 0.54 MG/DL Random Glucose 76 MG/DL Total Protein 5.6 GM/DL Albumin 2.6 GM/DL Calcium Level 8.2 MG/DL Alkaline Phosphatase 61 U/L Aspartate Amino Transf (AST/SGOT) 13 U/L Alanine Aminotransferase (ALT/SGPT) 15 U/L Total Bilirubin 0.2 MG/DL Sodium Level 145 MEQ/L Potassium Level 4.1 MEQ/L Chloride Level 109 MEQ/L Carbon Dioxide Level 26.2 MEQ/L Anion Gap 10 MEQ/L Estimat Glomerular Filtration Rate 150 ML/MIN Ammonia 42 MCMOL/L Valproic Acid (Depakene) Level 64 MCG/ML Labs reviewed. Depakote level therapeutic. Ammonia level remains elevated and unchanged. Worsening microcytic anemia. Vitals/IOs Vital Signs Date Time Temp Pulse Resp B/P (MAP) Pulse Ox O2 Delivery O2 Flow Rate FiO2 08/23/17 05:50 96.9 71 18 100/56 (71) 95 Intake and Output 08/23/17 08/23/17 08/24/17 08:00 16:00 00:00 Intake Total 150 ml Balance 150 ml Assessment & Plan Problem List: (1) Dementia with behavioral disturbance ICD Codes: F03.91 - Unspecified dementia with behavioral disturbance (2) History of schizophrenia ICD Codes: Z86.59 - Personal history of other mental and behavioral disorders Assessment & Plan Inadequate response to current therapy. Given that Depakote is likely causing hyperammonemia necessitating use of lactulose with resultant loose stools and fecal incontinence, I will elect to taper and discontinue Depakote due to lack of efficacy. Seizure precautions remain in place during Depakote taper. The patient remains on Keppra as previously noted, although this may be contributing to patient's dysphoria/irritability. I will add a low dose of Zyprexa PO/IM with plans to titrate to effect. I will continue Haldol as ordered for now, but we may continue a cross taper to the Zyprexa if the Zyprexa seems more efficacious. Check Fe studies and FOB in light of worsening anemia and consult the hospitalist for further assessment and management. Continue to monitor on the high acuity unit. Continue other medications and care as ordered. Justification for Cont. Inpt. Medication changes. Impairment in safety. High risk for decompensation in less restrictive environment. Discharge Planning Pending psychiatric stabilization Request HC Surrog/Guard Advoc?: Yes Christiano Harper MD August 23, 2017 15:50
[2017-08-23 16:07] LABS: % SATURATION IRON PROFILE 4.1 % (20-50); IRON (FE) 13 MCG/DL (65-175); TOTAL IRON BINDING CAPACITY 318 MCG/DL (250-450)
[2017-08-23 16:09] LABS: FERRITIN 16 NG/ML (26-388)
[2017-08-23 16:31] VITALS: BP 115/70; PULSE 94; RESP 17; TEMP 97.3; O2SAT 96
[2017-08-23] MEDS: OLANZapine ODT 5 MG TAB PO SCH (21:00)
[2017-08-24] MEDS: LEVOTHYROXINE SODIUM 50 MCG TAB PO SCH (06:21)
[2017-08-24 06:27] VITALS: BP 115/57; PULSE 86; RESP 20; TEMP 98.6; O2SAT 100
[2017-08-24] MEDS: VALPROIC ACID SYRUP 250 MG/5 ML UDC PO SCH ×3 (07:58→21:49)
[2017-08-24] MEDS: levETIRAcetam 500 MG TAB PO SCH ×2 (07:58→21:45)
[2017-08-24] MEDS: METOPROLOL SUCCINATE 25 MG EXTENDED RELEASE TAB PO SCH (07:58)
[2017-08-24] MEDS: ZINC SULFATE 220 MG CAP PO SCH (07:59)
[2017-08-24] MEDS: DOCUSATE SODIUM 50 MG/SENNA 8.6 MG TAB PO SCH ×2 (07:59→21:44)
[2017-08-24] MEDS: PANTOPRAZOLE SOD 20 MG DELAYED RELEASE TAB PO SCH (07:59)
[2017-08-24] MEDS: FOLIC ACID 1 MG TAB PO SCH (07:59)
[2017-08-24] MEDS: TAMSULOSIN HCL 0.4 MG CAP PO SCH ×2 (07:59→21:47)
[2017-08-24] MEDS: CYANOCOBALAMIN 1,000 MCG TAB PO SCH (07:59)
[2017-08-24] MEDS: HALOPERIDOL LACTATE ORAL CONC 10 MG/5 ML CUP PO SCH ×2 (07:59→21:45)
[2017-08-24] MEDS: ASCORBIC ACID 500 MG TAB PO SCH ×2 (07:59→21:44)
[2017-08-24] MEDS: FINASTERIDE 5 MG TAB PO SCH (07:59)
[2017-08-24] MEDS: OLANZapine ODT 5 MG TAB PO SCH ×2 (08:00→21:46)
[2017-08-24] MEDS ORDERED: REMOVE OLD PATCH T-DERMAL PRN (09:00)
[2017-08-24] MEDS: FERROUS SULFATE 325 MG (65 MG ELEMENTAL IRON) TAB PO SCH ×2 (12:00→17:00)
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
[2017-08-24 18:12] VITALS: BP 112/66; PULSE 82; RESP 18; TEMP 97.8; O2SAT 98
[2017-08-25 06:39] VITALS: BP 123/77; PULSE 84; RESP 20; TEMP 97.7; O2SAT 95
[2017-08-25] MEDS: LEVOTHYROXINE SODIUM 50 MCG TAB PO SCH (06:39)
[2017-08-25] MEDS: DOCUSATE SODIUM 50 MG/SENNA 8.6 MG TAB PO SCH ×2 (09:00→20:51)
[2017-08-25] MEDS: CYANOCOBALAMIN 1,000 MCG TAB PO SCH (09:17)
[2017-08-25] MEDS: PANTOPRAZOLE SOD 20 MG DELAYED RELEASE TAB PO SCH (09:17)
[2017-08-25] MEDS: METOPROLOL SUCCINATE 25 MG EXTENDED RELEASE TAB PO SCH (09:17)
[2017-08-25] MEDS: VALPROIC ACID SYRUP 250 MG/5 ML UDC PO SCH ×2 (09:17→20:52)
[2017-08-25] MEDS: OLANZapine ODT 5 MG TAB PO SCH ×2 (09:17→20:51)
[2017-08-25] MEDS: FOLIC ACID 1 MG TAB PO SCH (09:17)
[2017-08-25] MEDS: ZINC SULFATE 220 MG CAP PO SCH (09:17)
[2017-08-25] MEDS: TAMSULOSIN HCL 0.4 MG CAP PO SCH ×2 (09:17→20:51)
[2017-08-25] MEDS: levETIRAcetam 500 MG TAB PO SCH ×2 (09:18→20:50)
[2017-08-25] MEDS: HALOPERIDOL LACTATE ORAL CONC 10 MG/5 ML CUP PO SCH ×2 (09:18→22:41)
[2017-08-25] MEDS: ASCORBIC ACID 500 MG TAB PO SCH ×2 (09:18→20:52)
[2017-08-25] MEDS: FINASTERIDE 5 MG TAB PO SCH (09:18)
[2017-08-25] MEDS: FERROUS SULFATE 325 MG (65 MG ELEMENTAL IRON) TAB PO SCH ×2 (11:38→16:44)
[2017-08-25] MEDS: ACETAMINOPHEN 325 MG TAB PO PRN ×2 (11:38→20:51)
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
[2017-08-25] MEDS ORDERED: IBUPROFEN 400 MG TAB PO PRN (12:45)
[2017-08-25 14:35] VITALS: BP 96/51; PULSE 61; RESP 12; TEMP 97.1; O2SAT 94
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
[2017-08-25 18:02] VITALS: BP 118/66; PULSE 76; RESP 17; TEMP 97.6; O2SAT 96
--- NOTE | 2017-08-25 21:18 | RADRPT ---
EXAM DATE/TIME: 08/25/2017 20:34 [facility] COMPARISON: No previous studies available for comparison. INDICATIONS : Pain from fall. MEDICAL HISTORY : None. SURGICAL HISTORY : None. ENCOUNTER: Initial ACUITY: 1 day PAIN SCORE: 5/10 LOCATION: Lower back. FINDINGS: Degenerative changes are noted throughout the lumbar spine. There is grade I anterolisthesis of L3 in relation to L2. There is no acute compression fracture. Degenerative changes are also noted within t he lower thoracic spine. CONCLUSION: 1. No acute compression fracture. 2. Grade I anterolisthesis of L3 in relation to L2. 3. Degenerative changes involving the thoracolumbar spine. Oscar Burden MD on August 25, 2017 at 21:13 Board Certified Radiologist. This report was verified electronically.
--- NOTE | 2017-08-25 21:20 | RADRPT ---
EXAM DATE/TIME: 08/25/2017 20:35 [facility] COMPARISON: No previous studies available for comparison. INDICATIONS : Pain from fall. MEDICAL HISTORY : None. SURGICAL HISTORY : Femoral jl, right. ENCOUNTER: Initial ACUITY: 1 day PAIN SCORE: 5/10 LOCATION: Right knee. FINDINGS: Spurring is noted at the insertion of the patellar ligament on the tibia. There is soft tissue swelli ng in this location also. There is spurring at the insertion of the quadriceps tendon on the patella are noted. No acute fracture or dislocation of the right knee. Intramedullary jl is noted within the femur. No knee joint effusion is noted. No significant arthritic changes are noted. CONCLUSION: 1. Spurring at the insertion of the patellar ligament on the tibia with overlying soft tissue swellin g. 2. No acute fracture or dislocation. 3. Spurring at the insertion of the quadriceps tendon on the patella. Oscar Burden MD on August 25, 2017 at 21:16 Board Certified Radiologist. This report was verified electronically.
[2017-08-25] MEDS: MELATONIN 5 MG TAB PO PRN (22:41)
--- NOTE | 2017-08-25 23:41 | RADRPT ---
EXAM DATE/TIME: 08/25/2017 17:35 [facility] COMPARISON: No previous studies available for comparison. INDICATIONS : Bilateral leg swelling. MEDICAL HISTORY : Hypothyroidism. Benign prostatic hyperplasia, (BPH) Arthritis. Schizophrenia with dementia. SURGICAL HISTORY : Cholecystectomy.Appendectomy. Pacemaker. ENCOUNTER: Initial ACUITY: 1 day PAIN SCORE: 0/10 LOCATION: Bilateral legs. TECHNIQUE: Venous ultrasound of the left and right leg was performed from the inguinal ligament to the proximal calf. Real-time, color Doppler and spectral tracing, compression and augmentation techniques were us ed. FINDINGS: RIGHT LEG: There is normal compressibility of the deep venous system from the inguinal region to the proximal ca lf. No echogenic clot is seen in the lumen of the common femoral, femoral, popliteal, and posterior tibial veins. There is a normal response of the venous system to proximal and distal augmentation an d respiration. LEFT LEG: There is normal compressibility of the deep venous system from the inguinal region to the proximal ca lf. No echogenic clot is seen in the lumen of the common femoral, femoral, popliteal, and posterior tibial veins. There is a normal response of the venous system to proximal and distal augmentation an d respiration. CONCLUSION: Normal examination. Gopi Yao MD on August 25, 2017 at 23:39 Board Certified Radiologist. This report was verified electronically.
[2017-08-26] MEDS: HALOPERIDOL LACTATE 5 MG/ML AMP IM PRN ×2 (03:39→23:20)
[2017-08-26 06:00] VITALS: BP 126/63; PULSE 63; RESP 17; TEMP 97.5; O2SAT 93
[2017-08-26] MEDS: LEVOTHYROXINE SODIUM 50 MCG TAB PO SCH (06:34)
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
[2017-08-26 08:51] LABS: HEMATOCRIT 33.8 % (39.0-51.0); HEMOGLOBIN 10.5 GM/DL (13.0-17.0)
[2017-08-26] MEDS: HALOPERIDOL LACTATE ORAL CONC 10 MG/5 ML CUP PO SCH ×2 (09:19→20:13)
[2017-08-26] MEDS: VALPROIC ACID SYRUP 250 MG/5 ML UDC PO SCH (09:19)
[2017-08-26] MEDS: FINASTERIDE 5 MG TAB PO SCH (09:20)
[2017-08-26] MEDS: ASCORBIC ACID 500 MG TAB PO SCH ×2 (09:20→20:51)
[2017-08-26] MEDS: CYANOCOBALAMIN 1,000 MCG TAB PO SCH (09:21)
[2017-08-26] MEDS: FOLIC ACID 1 MG TAB PO SCH (09:21)
[2017-08-26] MEDS: METOPROLOL SUCCINATE 25 MG EXTENDED RELEASE TAB PO SCH (09:21)
[2017-08-26] MEDS: ZINC SULFATE 220 MG CAP PO SCH (09:21)
[2017-08-26] MEDS: OLANZapine ODT 5 MG TAB PO SCH (09:22)
[2017-08-26] MEDS: PANTOPRAZOLE SOD 20 MG DELAYED RELEASE TAB PO SCH (09:22)
[2017-08-26] MEDS: TAMSULOSIN HCL 0.4 MG CAP PO SCH ×2 (09:23→20:51)
[2017-08-26] MEDS: levETIRAcetam 500 MG TAB PO SCH ×2 (09:27→20:13)
[2017-08-26] MEDS: DOCUSATE SODIUM 50 MG/SENNA 8.6 MG TAB PO SCH ×2 (09:27→20:14)
--- NOTE | 2017-08-26 09:48 | HHI.PYPN ---
Subjective Chief Complaint: Aggressive behavior in setting of dementia Remarks Patient seen and examined. Chart reviewed. Case discussed with nurse and counselor. Nurse notes patient slept poorly overnight. He reportedly remains exit seeking and delusional regarding being the captain of a ship but is less sexually preoccupied and less destructive utilization behavior have been noted. On my exam, patient is sitting calmly in his room. There is no evidence of sedation and mental status seems at recent baseline. I do not there was some concern for lethargy or decreased responsiveness yesterday, but this is not in evidence today. 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 No evident side effects from medications besides mild resting tremor. No physical complaints. Review of Systems ROS Limitations: Psychotic, Poor Historian Except as stated in HPI: all other systems reviewed are Neg Mental Status Examination Appearance: Disheveled Consciousness: Alert Orientation: Person Motor Activity: Other (Mild resting tremor. No other motor abnormalities noted.) Speech: Unremarkable Language: Other (Remains rambling) Fund of Knowledge: Poor Attention and Concentration: Inadequate Memory: Impaired Mood: Other (Calm) Affect: Blunt Thought Process & Associations: Tangential Thought Content: Bizarre thinking Hallucination Type: None Delusion Type: Other (Grandiose) Suicidal Ideation: No (No SI voiced) Homicidal Ideation: No (No HI voiced) Insight: Poor Judgment: Poor Results Labs Test 08/26/17 08:37 Hemoglobin 10.5 GM/DL Hematocrit 33.8 % Ammonia 18 MCMOL/L Labs reviewed. Ammonia level trending downwards as Depakote is being tapered away. H&H improved today. Last Impressions Lumbar Spine X-Ray 08/25/17 0000 Signed Impressions: Service Date/Time: Friday, August 25, 2017 20:34 - CONCLUSION: 1. No acute compression fracture. 2. Grade I anterolisthesis of L3 in relation to L2. 3. Degenerative changes involving the thoracolumbar spine. Oscar Burden MD Lower Extremity Ultrasound 08/25/17 0000 Signed Impressions: Service Date/Time: Friday, August 25, 2017 17:35 - CONCLUSION: Normal examination. Gopi Yao MD Knee X-Ray 08/25/17 0000 Signed Impressions: Service Date/Time: Friday, August 25, 2017 20:35 - CONCLUSION: 1. Spurring at the insertion of the patellar ligament on the tibia with overlying soft tissue swelling. 2. No acute fracture or dislocation. 3. Spurring at the insertion of the quadriceps tendon on the patella. Oscar Burden MD Chest X-Ray 08/12/17 0000 Signed Impressions: Service Date/Time: Saturday, August 12, 2017 19:21 - CONCLUSION: No acute abnormality demonstrated. Chet Toledo MD Vitals/IOs Vital Signs Date Time Temp Pulse Resp B/P (MAP) Pulse Ox O2 Delivery O2 Flow Rate FiO2 08/26/17 06:00 97.5 63 17 126/63 (84) 93 Intake and Output 08/26/17 08/26/17 08/27/17 08:00 16:00 00:00 Intake Total 720 ml Balance 720 ml Assessment & Plan Problem List: (1) Dementia with behavioral disturbance ICD Codes: F03.91 - Unspecified dementia with behavioral disturbance (2) History of schizophrenia ICD Codes: Z86.59 - Personal history of other mental and behavioral disorders Assessment & Plan Patient does seem improved with Zyprexa in that he is less aggressive and less sexually preoccupied today. Since he is reportedly sleeping poorly, I will titrate the nighttime dose to 10mg qHS and keep morning dose unchanged. Taper Haldol to 10mg BID with plans for further cross-taper to Zyprexa so long as this agent remains more efficacious. Continue Depakote taper. Nurse to endeavor to obtain FOB for completeness, although H&H is improved today. Hospitalist input appreciated, and I did discuss the case with the mid-level provider from the hospitalist service today. Continue other medications and care as ordered. Justification for Cont. Inpt. Medication changes. Risk for decompensation in less restrictive environment. Discharge Planning Discharge to facility once psychiatrically stable. Request HC Surrog/Guard Advoc?: Yes Christiano Harper MD August 26, 2017 09:48
[2017-08-26] MEDS: FERROUS SULFATE 325 MG (65 MG ELEMENTAL IRON) TAB PO SCH ×2 (13:01→17:00)
[2017-08-26 17:07] VITALS: BP 115/60; PULSE 63; RESP 18; TEMP 97.8; O2SAT 96
[2017-08-26] MEDS ORDERED: OLANZapine ODT 10 MG TAB PO SCH (21:00)
[2017-08-27] MEDS: LEVOTHYROXINE SODIUM 50 MCG TAB PO SCH (05:51)
[2017-08-27 06:12] VITALS: BP 117/57; PULSE 83; RESP 18; TEMP 96.4; O2SAT 97
[2017-08-27] MEDS: FINASTERIDE 5 MG TAB PO SCH (09:00)
[2017-08-27] MEDS: ZINC SULFATE 220 MG CAP PO SCH (09:00)
[2017-08-27] MEDS: FOLIC ACID 1 MG TAB PO SCH (09:55)
[2017-08-27] MEDS: CYANOCOBALAMIN 1,000 MCG TAB PO SCH (09:55)
[2017-08-27] MEDS: PANTOPRAZOLE SOD 20 MG DELAYED RELEASE TAB PO SCH (09:56)
[2017-08-27] MEDS: ASCORBIC ACID 500 MG TAB PO SCH ×2 (09:56→21:07)
[2017-08-27] MEDS: DOCUSATE SODIUM 50 MG/SENNA 8.6 MG TAB PO SCH ×2 (09:56→21:05)
[2017-08-27] MEDS: METOPROLOL SUCCINATE 25 MG EXTENDED RELEASE TAB PO SCH (09:56)
[2017-08-27] MEDS: TAMSULOSIN HCL 0.4 MG CAP PO SCH ×2 (09:56→21:05)
[2017-08-27] MEDS: OLANZapine ODT 5 MG TAB PO SCH (09:56)
[2017-08-27] MEDS: levETIRAcetam 500 MG TAB PO SCH ×2 (09:57→21:05)
[2017-08-27] MEDS: HALOPERIDOL LACTATE ORAL CONC 10 MG/5 ML CUP PO SCH ×2 (09:57→21:05)
--- NOTE | 2017-08-27 09:57 | HHI.PYPN ---
Subjective Chief Complaint: Aggressive behavior in setting of dementia Remarks Patient seen and examined with nurse and counselor. Chart reviewed. It appears patient received both PO and IM Zyprexa yesterday evening, along with a Haldol IM p.r.n.. I have emphasized to nursing staff that Zyprexa IM is to be used only if patient refuses PO Zyprexa. Case discussed with nurse who reports patient is exit seeking and issues racial slurs. Case discussed in treatment team. Prior to my evaluation I note patient is rattling door on the unit, trying it seems to get out. On my exam, patient is irritable. He persists in his delusion that he is captain of a ship and says that there is "too much mutiny" going on. He denies side effects from medications. No physical complaints. Review of Systems ROS Limitations: Psychotic, Poor Historian Except as stated in HPI: all other systems reviewed are Neg Mental Status Examination Appearance: Disheveled Consciousness: Alert Orientation: Person Motor Activity: Other (No hand tremor, no cogwheeling, no dystonia, no dyskinesias noted.) Speech: Unremarkable Language: Other (Rambling) Fund of Knowledge: Poor Attention and Concentration: Inadequate Memory: Impaired Mood: Other (Dysphoric) Affect: Other (Restricted) Thought Process & Associations: Tangential Thought Content: Bizarre thinking Hallucination Type: None Delusion Type: Other (Believes that he is the captain of a ship) Suicidal Ideation: No (No SI voiced) Homicidal Ideation: No (No HI voiced) Insight: Poor Judgment: Poor Results Labs Date/Time Source Procedure Growth Status 08/27/17 03:52 Stool Stool Stool Occult Blood (ARIELLE) - Final HEMOCCULT NEGATIVE Complete Labs reviewed. FOB negative. Vitals/IOs Vital Signs Date Time Temp Pulse Resp B/P (MAP) Pulse Ox O2 Delivery O2 Flow Rate FiO2 08/27/17 06:12 96.4 83 18 117/57 (77) 97 Assessment & Plan Problem List: (1) Dementia with behavioral disturbance ICD Codes: F03.91 - Unspecified dementia with behavioral disturbance (2) History of schizophrenia ICD Codes: Z86.59 - Personal history of other mental and behavioral disorders Assessment & Plan Titrate Zyprexa to 5mg/15mg to target psychosis and behavioral disturbance. To consider clozapine trial. Continue Haldol as ordered. Continue to monitor on the high acuity unit. Continue other medications and care as ordered. Justification for Cont. Inpt. Medication changes. Impairment in safety. Impairment in reality construction. High risk for decompensation in less restrictive environment. Discharge Planning Placement following psychiatric stabilization. Request HC Surrog/Guard Advoc?: Yes Christiano Harper MD August 27, 2017 09:57
[2017-08-27] MEDS: FERROUS SULFATE 325 MG (65 MG ELEMENTAL IRON) TAB PO SCH ×2 (12:00→17:30)
[2017-08-27 18:34] VITALS: BP 108/60; PULSE 82; RESP 18; TEMP 97.6; O2SAT 97
[2017-08-27] MEDS: OLANZapine ODT 15 MG TAB PO SCH (21:00)
[2017-08-28] MEDS: HALOPERIDOL LACTATE 5 MG/ML AMP IM PRN (04:50)
[2017-08-28] MEDS: LEVOTHYROXINE SODIUM 50 MCG TAB PO SCH (06:03)
[2017-08-28 06:33] VITALS: BP 117/57; PULSE 98; RESP 16; TEMP 97.7; O2SAT 96
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
[2017-08-28] MEDS: OLANZapine ODT 5 MG TAB PO SCH (09:40)
[2017-08-28] MEDS: DOCUSATE SODIUM 50 MG/SENNA 8.6 MG TAB PO SCH ×2 (09:40→20:59)
[2017-08-28] MEDS: CYANOCOBALAMIN 1,000 MCG TAB PO SCH (09:40)
[2017-08-28] MEDS: PANTOPRAZOLE SOD 20 MG DELAYED RELEASE TAB PO SCH (09:41)
[2017-08-28] MEDS: TAMSULOSIN HCL 0.4 MG CAP PO SCH ×2 (09:41→20:59)
[2017-08-28] MEDS: ZINC SULFATE 220 MG CAP PO SCH (09:41)
[2017-08-28] MEDS: FOLIC ACID 1 MG TAB PO SCH (09:41)
[2017-08-28] MEDS: ASCORBIC ACID 500 MG TAB PO SCH ×2 (09:41→20:59)
[2017-08-28] MEDS: FINASTERIDE 5 MG TAB PO SCH (09:41)
[2017-08-28] MEDS: levETIRAcetam 500 MG TAB PO SCH ×2 (09:41→20:59)
[2017-08-28] MEDS: METOPROLOL SUCCINATE 25 MG EXTENDED RELEASE TAB PO SCH (09:42)
[2017-08-28] MEDS: HALOPERIDOL LACTATE ORAL CONC 10 MG/5 ML CUP PO SCH ×2 (09:42→20:59)
[2017-08-28] MEDS: FERROUS SULFATE 325 MG (65 MG ELEMENTAL IRON) TAB PO SCH ×2 (12:30→17:16)
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
[2017-08-28 17:00] VITALS: BP 126/68; PULSE 93; RESP 17; TEMP 96.7; O2SAT 98
[2017-08-28] MEDS: OLANZapine ODT 15 MG TAB PO SCH (20:59)
[2017-08-29] MEDS: HALOPERIDOL LACTATE 5 MG/ML AMP IM PRN (02:35)
[2017-08-29 06:12] VITALS: BP 121/62; PULSE 95; RESP 18; TEMP 97.2; O2SAT 96
[2017-08-29] MEDS: LEVOTHYROXINE SODIUM 50 MCG TAB PO SCH (06:34)
[2017-08-29] MEDS: DOCUSATE SODIUM 50 MG/SENNA 8.6 MG TAB PO SCH (08:07)
[2017-08-29] MEDS: levETIRAcetam 500 MG TAB PO SCH (08:07)
[2017-08-29] MEDS: FOLIC ACID 1 MG TAB PO SCH (08:07)
[2017-08-29] MEDS: PANTOPRAZOLE SOD 20 MG DELAYED RELEASE TAB PO SCH (08:07)
[2017-08-29] MEDS: ZINC SULFATE 220 MG CAP PO SCH (08:07)
[2017-08-29] MEDS: METOPROLOL SUCCINATE 25 MG EXTENDED RELEASE TAB PO SCH (08:07)
[2017-08-29] MEDS: OLANZapine ODT 5 MG TAB PO SCH (08:07)
[2017-08-29] MEDS: HALOPERIDOL LACTATE ORAL CONC 10 MG/5 ML CUP PO SCH (08:07)
[2017-08-29] MEDS: ASCORBIC ACID 500 MG TAB PO SCH (08:10)
[2017-08-29] MEDS: TAMSULOSIN HCL 0.4 MG CAP PO SCH (08:11)
[2017-08-29] MEDS: CYANOCOBALAMIN 1,000 MCG TAB PO SCH (08:11)
[2017-08-29] MEDS: FINASTERIDE 5 MG TAB PO SCH (08:11)
[2017-08-29] MEDS ORDERED: OLANZ15 PO (12:45)
[2017-08-29] MEDS ORDERED: OLANZ5 PO (12:45)
[2017-08-29] MEDS ORDERED: FERR325T20 PO (12:45)
[2017-08-29] MEDS ORDERED: HALO2S PO (12:45)
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
[2017-08-29] MEDS: FERROUS SULFATE 325 MG (65 MG ELEMENTAL IRON) TAB PO SCH (13:03)
== END 2017-08-29 14:20 | DRG 884 ==
LOC: NEPD 15:59 → NEDA 08-12 15:28 → H270 08-12 16:42 → H250 08-12 21:16 → H260 08-14 13:00 → H250 08-15 14:00 → H270 08-22 14:00 → H4EA 08-25 15:02 → H270 08-26 15:05
PROVIDERS: ADMIT Psychiatry & Neurology Psychiatry; ATTEND Psychiatry & Neurology Psychiatry
DX: F03.91 Unspecified dementia, unspecified severity, with behavioral disturbance (principal); E72.20 Disorder of urea cycle metabolism, unspecified; R45.851 Suicidal ideations; Z78.1 Physical restraint status; F20.0 Paranoid schizophrenia; E03.9 Hypothyroidism, unspecified; F17.210 Nicotine dependence, cigarettes, uncomplicated; D50.9 Iron deficiency anemia, unspecified; G89.29 Other chronic pain; N40.0 Benign prostatic hyperplasia without lower urinary tract symptoms; M54.2 Cervicalgia; K59.00 Constipation, unspecified; K64.9 Unspecified hemorrhoids; M25.461 Effusion, right knee; M54.5 Low back pain; M79.661 Pain in right lower leg; R15.9 Full incontinence of feces; R41.82 Altered mental status, unspecified; R41.89 Other symptoms and signs involving cognitive functions and awareness; R60.0 Localized edema; Z95.0 Presence of cardiac pacemaker
CPT/HCPCS: 71045; 72100; 73564; 80048; 80053; 80061; 80164; 80307; 81001; 82140; 82272; 82728; 83036; 83540; 83550; 83735; 84443; 85014; 85018; 85025; 87493; 93005; 93970; 96372; J1200; J1630; J2060; J3230